=== PATIENT | female | born 1930 | race Asian ===

== ENCOUNTER 2017-01-31 08:35 | Inpatient (IN) | payer MEDICARE, OTHER ==
[~2017-01-31] VITALS: Ht 157.5 cm; Wt 49.9 kg
[~2017-01-31 08:35] MED LIST: ASPI-825 PO; ATEN25 PO; CALC-590 PO; DIOVAN; GLUC1500 PO; HYDROCHLOROTHIAZIDE; MULT1TAB PO; SIMV40 PO
[2017-01-31 08:47] LABS: GLUCOSE,POINT OF CARE 234 MG/DL (70-110)
[2017-01-31] MEDS ORDERED: PROPOFOL 1000 MG/ISO-OSM 100 ML IV ONE (08:56)
[2017-01-31 09:14] LABS: BASOPHILS % (AUTO) 0.2 % (0.0-2.0); EOSINOPHILS % (AUTO) 0 % (1.0-6.0); HEMATOCRIT 42.2 % (36-46); HEMOGLOBIN 13.5 g/dL (12.0-16.0); LYMPHOCYTES # (AUTO) 0.6 K/uL (1.0-4.8); LYMPHOCYTES % (AUTO) 3.3 % (22.0-44.0); MEAN CORPUSCULAR HEMOGLOBIN 30.5 pg (26.0-34.0); MEAN CORPUSCULAR VOLUME 95 fL (80-100); MONOCYTES # (AUTO) 0.7 K/uL (0.1-1.0); MONOCYTES % (AUTO) 3.7 % (2.0-9.0); NEUTROPHILS # (AUTO) 17.8 K/uL (1.8-7.7); PLATELET COUNT (AUTO) 205 K/uL (150-450); RED BLOOD CELL COUNT(AUTO) 4.43 MIL/uL (4.00-5.20); RED CELL DISTRIBUTION WIDTH 14.5 % (11.5-14.5); WHITE BLOOD COUNT (AUTO) 19.2 K/uL (4.5-11.0)
[2017-01-31 09:15] LABS: NEUTROPHILS % (AUTO) 92.8 % (40.0-70.0)
[2017-01-31 09:19] LABS: ABG A-A DIFF O2 114.8 mmHg (10-20.0); ABG BASE EXCESS -11.2 mmol/L (-2.0-3.0); ABG HCO3 17.2 mmol/L (22.0-26.0); ABG OXYHEMOGLOBIN 98.5 % (94.0-100.0); ABG PCO2 25 mmHg (35-45); ABG PH 7.364 (7.35-7.450); TEMPERATURE, FAHRENHEIT, BG 98.6 FAHREN (96.0-98.6)
[2017-01-31 09:20] LABS: ALLEN TEST, BLOOD GAS Positive
[2017-01-31 09:20] LABS: ADD UA MICROSCOPIC YES; APPEARANCE,URINE CLEAR (CLEAR); GLUCOSE, URINE (UA) 500 mg/dL (NEGATIVE); KETONES,URINE TRACE mg/dL (NEGATIVE); LEUKOCYTE ESTERASE ,URINE NEGATIVE (NEGATIVE); OCCULT BLOOD,URINE MODERATE (NEGATIVE); PH,URINE 6.5 (5.0-8.0); PROTEIN,URINE SEE CONFIRM (NEGATIVE)
[2017-01-31] MEDS ORDERED: VALS160T2 PO (09:21)
[2017-01-31] MEDS ORDERED: GABA-529 PO (09:21)
[2017-01-31 09:23] LABS: SULFOSALICYLIC ACID,URINE 3+ (Negative)
[2017-01-31 09:26] LABS: SQUAMOUS EPITHELIAL CELL,UR Few /LPF (None Seen); WBC,URINE 0-2 /HPF (0-5)
[2017-01-31 09:27] LABS: ANION GAP 19 mmol/L (8-16); CALCIUM, TOTAL 8.4 mg/dL (8.8-10.5); CARBON DIOXIDE 19 mmol/L (22-29); CHLORIDE 103 mmol/L (98-107); CREATININE 1.08 mg/dL (0.60-1.30); GLOMERULAR FILTR. RATE CALC 48 mL/min (>60); POTASSIUM 3.1 mmol/L (3.5-5.1); PROTHROMBIN TIME 10.2 SEC (9.4-11.6); SODIUM SERUM 141 mmol/L (136-145); UREA NITROGEN, BLOOD 12 mg/dL (7-18)
[2017-01-31 09:35] LABS: AMMONIA 16 umol/L (11-32)
[2017-01-31 09:40] LABS: TROPONIN I < 0.02 ng/mL (0.00-0.05)
[2017-01-31 09:42] LABS: B-TYPE NATRIURETIC PEPTIDE 48 pg/mL (0-100)
[2017-01-31 09:51] LABS: ALANINE AMINOTRANSFERASE 21 U/L (12-78); ALBUMIN 3.5 g/dL (3.4-5.0); ASPARTATE AMINOTRANSFERASE 36 U/L (15-37); BILIRUBIN,TOTAL 0.7 mg/dL (0.1-1.0); CREATINE KINASE MB 2.7 ng/mL (0-5); CREATINE KINASE, TOTAL 129 U/L (26-192); TOTAL PROTEIN, SERUM 8.3 g/dL (6.4-8.2)
[2017-01-31 10:00] LABS: LACTIC ACID 8.7 mmol/L (0.4-2.0)
[2017-01-31 11:10] LABS: REFLEX LACTIC ACID? YES YES
[2017-01-31] MEDS ORDERED: MAGNESIUM SULFATE 4 GM/WATER 100 ML IV PRN (13:45)
[2017-01-31] MEDS ORDERED: ONDANSETRON HCL 4 MG/2 ML VIAL IVP PRN (13:45)
[2017-01-31] MEDS ORDERED: POTASSIUM CHL 10 MEQ/WATER 50 ML IV PRN (13:45)
[2017-01-31] MEDS ORDERED: DEXTROSE 50%-WATER 25 GM/50 ML SYRINGE IVP PRN (13:45)
[2017-01-31] MEDS ORDERED: ACETAMINOPHEN 325 MG TABLET PO PRN (13:45)
[2017-01-31] MEDS ORDERED: POTASSIUM CHLORIDE 20 MEQ ER TABLET PO PRN (13:45)
[2017-01-31] MEDS ORDERED: MAGNESIUM OXIDE 400 MG TABLET PO PRN (13:45)
[2017-01-31] MEDS ORDERED: MAGNESIUM SULFATE 2 GM in DEXTROSE 5%-WATER 50 ML IV PRN (13:45)
[2017-01-31] MEDS ORDERED: MORPHINE SULFATE 2 MG/ML SYRINGE IVP PRN (13:45)
[2017-01-31] MEDS ORDERED: LORazepam 2 MG/ML VIAL IVP PRN (13:45)
[2017-01-31] MEDS ORDERED: MAGNESIUM HYDROXIDE SUSPENSION 30 ML UDCUP PO PRN (13:45)
[2017-01-31] MEDS ORDERED: SUCCINYLCHOLINE CHLORIDE 20 MG/ML 10 ML VIAL IM ONE (13:51)
[2017-01-31] MEDS ORDERED: ETOMIDATE 2 MG/ML 10 ML VIAL IV ONE (13:51)
[2017-01-31] MEDS ORDERED: PROPOFOL 1000 MG/ISO-OSM 100 ML IV PRN (15:15)
[2017-01-31 16:00] VITALS: BP 126/76
[2017-01-31] MEDS: METOPROLOL TARTRATE 25 MG TABLET PO SCH ×3 (16:00→21:00)
[2017-01-31 16:10] VITALS: BP 126/76
[2017-01-31] MEDS ORDERED: SODIUM CHLORIDE 0.9% 250 ML IV ONE (19:08)
[2017-01-31 20:00] VITALS: BP 100/71
[2017-01-31] MEDS: LevETIRAcetam 500 MG in DEXTROSE 5%-WATER 100 ML IV SCH (20:26)
[2017-01-31] MEDS: DOCUSATE SODIUM 100 MG CAPSULE PO SCH (20:27)
[2017-01-31] MEDS ORDERED: 0.9% SODIUM CHLORIDE 10 ML SYRINGE IVP PRN (20:30)
[2017-01-31 20:54] LABS: CREATINE KINASE MB 10.3 ng/mL (0-5)
[2017-01-31] MEDS ORDERED: VASOPRESSIN 100 UNITS in DEXTROSE 5%-WATER 245 ML IV PRN (21:00)
[2017-01-31] MEDS: PHENYLEPHRINE 200 MG/D5%-WATER 250 ML IV PRN (21:12)
[2017-01-31] MEDS ORDERED: PNEUMOCOCCAL VACCINE POLYVALENT 0.5 ML VIAL [PPSV23] IM ONE (21:15)
[2017-01-31] MEDS: NOREPINEPHRINE 4 MG/D5%-WATER 250 ML IV PRN (21:50)
[2017-01-31] MEDS ORDERED: SODIUM CHLORIDE 0.9% 500 ML IV ONE (23:48)
[2017-02-01] VITALS: BP 120/83
[2017-02-01] MEDS: INSULIN REGULAR, HUMAN 100 UNITS/ML SQ PRN ×2 (00:25→04:45)
[2017-02-01 04:00] VITALS: BP 120/78
[2017-02-01 06:19] LABS: CREATINE KINASE MB 12.1 ng/mL (0-5); MAGNESIUM 1.8 mg/dL (1.80-2.40); THYROID STIMULATING HORMONE 0.19 uIU/mL (0.36-3.74)
[2017-02-01 07:04] LABS: BASOPHILS # (AUTO) 0.04 K/uL (0.00-0.20); BASOPHILS % (AUTO) 0.2 % (0.0-2.0); EOSINOPHILS # (AUTO) 0.07 K/uL (0.00-0.70); EOSINOPHILS % (AUTO) 0.47 % (1.0-6.0); HEMATOCRIT 43.9 % (36-46); HEMOGLOBIN 14.5 g/dL (12.0-16.0); LYMPHOCYTES # (AUTO) 1.3 K/uL (1.0-4.8); LYMPHOCYTES % (AUTO) 8.4 % (22.0-44.0); MEAN CORPUSCULAR HEMOGLOBIN 30.9 pg (26.0-34.0); MEAN CORPUSCULAR HGB CONC 33.1 G/dL (31.0-37.0); MEAN CORPUSCULAR VOLUME 93 fL (80-100); MONOCYTES # (AUTO) 1.1 K/uL (0.1-1.0); NEUTROPHILS # (AUTO) 13.3 K/uL (1.8-7.7); NEUTROPHILS % (AUTO) 83.8 % (40.0-70.0); RED CELL DISTRIBUTION WIDTH 14.4 % (11.5-14.5); WHITE BLOOD COUNT (AUTO) 15.9 K/uL (4.5-11.0)
[2017-02-01 07:08] LABS: PLATELET COUNT (AUTO) 201 K/uL (150-450)
[2017-02-01 08:00] VITALS: BP 127/75
[2017-02-01] MEDS: METOPROLOL TARTRATE 25 MG TABLET PO SCH ×2 (08:16→20:09)
[2017-02-01] MEDS: DOCUSATE SODIUM 100 MG CAPSULE PO SCH ×2 (08:16→20:12)
[2017-02-01 08:22] LABS: GLUCOSE COMMENT 1 Received Meds; GLUCOSE,POINT OF CARE 141 MG/DL (70-110)
[2017-02-01 08:37] LABS: GLUCOSE,POINT OF CARE 122 MG/DL (70-110)
[2017-02-01] MEDS ORDERED: PANTOPRAZOLE SODIUM 40 MG/VIAL IVP SCH (09:00)
[2017-02-01] MEDS: LevETIRAcetam 500 MG in DEXTROSE 5%-WATER 100 ML IV SCH ×2 (09:16→20:12)
[2017-02-01] MEDS: NOREPINEPHRINE 4 MG/D5%-WATER 250 ML IV PRN (09:17)
[2017-02-01] MEDS: PHENYLEPHRINE 200 MG/D5%-WATER 250 ML IV PRN (09:17)
[2017-02-01 11:50] LABS: ABG HCO3 24.7 mmol/L (22.0-26.0); ABG PCO2 25 mmHg (35-45); ALLEN TEST, BLOOD GAS Positive
[2017-02-01 11:51] LABS: ABG BASE EXCESS -1.3 mmol/L (-2.0-3.0); ABG OXYHEMOGLOBIN 96.2 % (94.0-100.0)
[2017-02-01 11:52] LABS: ABG A-A DIFF O2 168.5 mmHg (10-20.0)
[2017-02-01 16:00] VITALS: BP 89/62
[2017-02-01 20:00] VITALS: BP 69/52
[2017-02-02] VITALS: BP 73/51
[2017-02-02 04:00] VITALS: BP 60/43
[2017-02-02] MEDS: NOREPINEPHRINE 4 MG/D5%-WATER 250 ML IV PRN (05:55)
[2017-02-02 08:00] VITALS: BP 55/45
[2017-02-02] MEDS: LevETIRAcetam 500 MG in DEXTROSE 5%-WATER 100 ML IV SCH (09:33)
[2017-02-02 12:00] VITALS: BP 64/36
[2017-02-02] MEDS: PHENYLEPHRINE 200 MG/D5%-WATER 250 ML IV PRN (15:15)
[2017-02-02 16:00] VITALS: BP 60/48
== END 2017-02-02 18:40 | disposition expired | DRG 208 ==
LOC: EMS 08:36 → ICU 13:55
PROVIDERS: ADMIT Internal Medicine; ATTEND Internal Medicine
PROC: 5A1945Z Respiratory Ventilation, 24-96 Consecutive Hours (ICD-10-PCS; principal; 2017-01-31)
PROC: 0BH17EZ Insertion of Endotracheal Airway into Trachea, Via Natural or Artificial Opening (ICD-10-PCS; 2017-01-31)
DX: J96.00 Acute respiratory failure, unspecified whether with hypoxia or hypercapnia (principal); I61.5 Nontraumatic intracerebral hemorrhage, intraventricular; G93.5 Compression of brain; G93.40 Encephalopathy, unspecified; I61.1 Nontraumatic intracerebral hemorrhage in hemisphere, cortical; I10 Essential (primary) hypertension; E78.5 Hyperlipidemia, unspecified; Z66 Do not resuscitate; E78.00 Pure hypercholesterolemia, unspecified; R32 Unspecified urinary incontinence; Z98.890 Other specified postprocedural states; Z91.041 Radiographic dye allergy status; Z79.899 Other long term (current) drug therapy; Z79.82 Long term (current) use of aspirin; Z86.69 Personal history of other diseases of the nervous system and sense organs
CPT/HCPCS: 31500; 51702; 70450; 78606; 82805; 82962; 83605; 83735; 84443; 87040; 87081; 93005; 94002; 94003; 99291; 99292; A9521; J0330; J0712; J2270; J2370; J2704; J3490; J7040; J7050; J7060